=== PATIENT | male | born 1960 | race Caucasian/White ===

== ENCOUNTER 2019-07-22 18:08 | Observation (INO) ==
[2019-07-22 18:20] LABS: Basophils % 0.6 % (0.1-2.0); Eosinophils # 0.4 K/mm3 (0.0-0.4); Eosinophils % 6.3 % (0.1-12.0); Hematocrit 39.2 % (42.0-52.0); Hemoglobin 13.2 g/dL (14.1-18.0); Lymphocytes # 2.8 K/mm3 (0.7-4.5); Lymphocytes % 40.5 % (10-50); Mean Corpuscular HGB Conc 33.7 g/dL (31.8-35.4); Mean Corpuscular Volume 95.8 fl (80-94); Mean Platelet Volume 7.5 fl (7.4-10.4); Monocytes # 0.4 K/mm3 (0.1-1.0); Monocytes % 5.2 % (1.7-9.3); Neutrophils # 3.2 K/mm3 (1.8-7.8); Neutrophils % 47.5 % (37.0-80.0); Platelet Count 310 K/mm3 (142-424); White Blood Count 6.8 K/mm3 (4.8-10.8)
[2019-07-22 18:34] LABS: Anion Gap 13.8 mEq/L (5-15); Blood Urea Nitrogen 14 mg/dL (7-18); Calcium 8.8 mg/dL (8.5-10.1); Carbon Dioxide 25 mmol/L (21.0-32.0); Chloride 105 mmol/L (98-107); Glucose 93 mg/dL (74-106); Sodium 140 mmol/L (136-145)
--- NOTE | 2019-07-22 20:24 | Emergency Department Note ---
ED Disposition Clinical Impression: Tobacco use Chest pain Qualifiers: Chest pain type: precordial pain Qualified Code(s): R07.2 - Precordial pain Disposition: Admitted as Observation Condition on Discharge: Good Referrals: Provider,Referral, [Primary Care Provider] - - Critical Care Critical Care Time: No Attestation: On 07/22/19, the high probability of a clinically significant, sudden or life threatening deterioration of the following system(s) required my full and direct attention, intervention and personal management. The time I documented below is in addition to time spent performing reported procedures but includes the following listed in this critical care notation. Medical Decision Making - Medical Records Medical records reviewed: Yes: I reviewed the patient's medical records. - Audi Inquiry Pt receiving controlled substance: No Vital Signs: 07/22/19 18:08 Temperature 98.3 F Temperature Source Oral Pulse Rate [Right] 75 Respiratory Rate 18 Blood Pressure [Right Arm] 150/106 H Blood Pressure Mean [Right Arm] 120 02 Sat by Pulse Oximetry 95 - Lab Data Lab results reviewed: Yes: I reviewed the patient's lab results. Lab Results 07/22/19 18:09: WBC 6.8, RBC 4.10 L, Hgb 13.2 L, Hct 39.2 L, MCV 95.8 H, MCH 32.3 H, MCHC 33.7, RDW 13.0, Plt Count 310, MPV 7.5, Neut % (Auto) 47.5, Lymph % (Auto) 40.5, [place] % (Auto) 5.2, Eos % (Auto) 6.3, Baso % (Auto) 0.6, Neut # (Auto) 3.2, Lymph # (Auto) 2.8, [place] # (Auto) 0.4, Eos # (Auto) 0.4, Baso # (Auto) 0.0 07/22/19 18:09: Sodium 140, Potassium 3.8, Chloride 105, Carbon Dioxide 25, Anion Gap 13.8, BUN 14, Creatinine 1.09, Estimated Creat Clear 65, Estimated GFR 69, Est GFR ( Amer) 84, Glucose 93, Calcium 8.8, Troponin I < 0.02 07/22/19 18:09: B-Natriuretic Peptide 18 Result diagrams: 07/22/19 18:09 07/22/19 18:09 Orders (Tests/Meds): ED MEDICATIONS Discontinued Medications Generic Name Dose Route Start Last Admin Trade Name Abdirizak PRN Reason Stop Dose Admin Aspirin 324 mg 07/22/19 18:12 07/22/19 18:25 Aspirin 81mg Chewable Tablet PO 07/22/19 18:13 324 mg ONCE ONE Administration ORDERS Category Date Time Status XR chest 2V Stat Exams 07/22/19 18:12 Taken Troponin I Q3H Lab 07/22/19 21:15 Ordered Troponin I Q3H Lab 07/23/19 00:15 Ordered - ECG Data Tracing #1 Normal Sinus Rhythm: Yes Ischemic changes: non-specific ST-T wave changes Chest Pain HPI - General Chief Complaint: Chest Pain Stated Complaint: chest pain Time Seen by Provider: 07/22/19 20:17 Mode of Arrival: Ambulatory Source of Information: Patient, Relative, Medical Record Limitations: No Limitations Description of Symptoms (Recalled from ER Triage Doc. by RN): Pt c/o chest pain in the center of his chest that radiates to the left side of his arm. - History of Present Illness HPI narrative: pt with over the last 3 days - he has lt ant chest pain with rad to lt upper ext - hx of heart disease - last stents 10 yrs ago complaint: chest pain indicative of cardiac Onset (ago): hour(s) Activity at onset: during rest Severity: moderate Risk Factors for CAD: Hypertension, Family Hx of CAD, Smoking Treatments prior to or on arrival for Cardiac Chest Pain: none - JESSICA Score for Non-Stemi Age of Patient: 50-59 years old Heart Rate: 70-89 bpm Systolic Blood Pressure: 140-159 mmHg Serum Creatinine: 0.80-1.19 mg/dl CHF [place] Class: I-No CHF Other Risk Factors: None Non-Stemi Risk Score: 81 - Related Data Prior Cardiac Testing/Procedures: Cardiac Angiogram Home Medications Medication Instructions Recorded Confirmed Clopidogrel Bisulfate [Plavix 75mg 75 mg PO DAILY 07/22/19 07/22/19 Tab] Metoprolol Tartrate [Lopressor 25 mg PO BID 07/22/19 07/22/19 25mg tablet] Simvastatin 40 mg PO DAILY 07/22/19 07/22/19 Tamsulosin HCl [Flomax 0.4mg 0.4 mg PO HS 07/22/19 07/22/19 capsule] Allergies Allergy/AdvReac Type Severity Reaction Status Date / Time No Known Allergies Allergy Verified 07/22/19 20:30 [facility] History - Hepatitis A Screen Drug use history?: No High risk sexual behaviors?: No History of sexually transmitted infection?: No Currently employed?: No Childcare worker?: No Do you have indoor plumbing?: Yes Do you have electricity?: Yes Attestation statement:: This patient has been screened for Hepatitis A risk factors. I have reviewed the patient's past medical history: Yes - Social History Alcohol Intake: never Occupational Status: retired ROS Obtained: Yes All systems reviewed & no additional complaints - Constitutional Constitutional: Denies fever(s) - Eyes Eyes: Denies change in vision - ENT Ears, Nose, Mouth, and Throat: Denies sore throat - Cardiovascular Cardiovascular: Reports chest pain, Denies dyspnea - Respiratory Respiratory: No cough - Gastrointestinal Gastrointestingal: Denies: abdominal pain - Genitourinary Male Genitourinary: Denies hematuria - Integumentary/Breasts Skin/Breast: Denies rash - Neurologic Neurologic: Denies seizure-like activity Physical Exam - General General appearance: alert - Head Head exam: normocephalic - Eye Eye exam: Present: PERRL, EOMI - ENT ENT exam: Present: mucous membranes moist - Neck Neck exam: Present: trachea midline - Respiratory Respiratory exam: Present: normal lung sounds bilaterally. Absent: respiratory distress - Cardiovascular Cardiovascular exam: Present: regular rate, systolic murmur - Abdominal Exam Abdominal exam: Present: soft - Extremities Exam Extremities exam: Present: full ROM. Absent: joint swelling - Neurological Exam Neurological exam: Present: alert, oriented X3, CN II-XII intact - Psychiatric Psychiatric exam: Present: normal affect - Skin Skin exam: Absent: rash
--- NOTE | 2019-07-23 07:34 | Consult Report ---
History of Present Illness Consult date: 07/23/19 Requesting physician: Ari Forbes Consult reason: chest pain Chief complaint: chest pain Additional Medical History:: 1. Tobacco use, 0.5-1.0 ppd 2. History of coronary disease with prior coronary stenting in [place], [place], approximately 2011 A. Left heart catheterization, 04/2017, ANGIOGRAPHIC RESULTS: 1. The left main artery has an ostial 30-40% nonflow limiting stenosis 2. The left anterior descending artery has a stent in the ostial proximal segment which is widely patent with excellent proximal and distal transitioning area in the first diagonal artery originates in side this proximal LAD stent. The diagonal artery also has a stent which is widely patent with excellent JORDAN-3 flow. The remaining LAD has mild 20 and 30% nonflow limiting stenoses 3. The circumflex artery is a nondominant vessel and has an ostial 20-30% proximal 30% stenoses 4. The right coronary artery is a dominant vessel and has 30% proximal mid vessel 30-40% stenoses 5. The MARQUEZ ventriculogram reveals normal 65% 6. The left ventricular end-diastolic pressure 10 mmHg IMPRESSION: 1. Coronary artery disease as described above 2. No interval change in left main disease 3. Widely patent stents 4. Normal ejection fraction 5. Normal left ventricular end-diastolic pressure 6. Patient is likely experiencing endothelial dysfunction causing his angina PLAN: 1. Antianginal medications including nitrates and Ranexa 2. Absolute tobacco avoidance 3. LDL less than 55 4. Risk factor modification 3. Hypertension 4. Hyperlipidemia History of present illness: 58-year-old white male with history of coronary artery disease and prior coronary stenting presented to the emergency department for evaluation of chest pain. Symptoms are recurrent over the last couple of days and not particularly associated with activity. He denies any nausea, vomiting or diarrhea. Symptoms are not the same as his prior angina/symptoms associated with his DC. Initial EKG showed sinus rhythm with no acute ST segment changes. Initial troponin was normal patient was admitted for further evaluation and observation. Overnight troponins have returned normal x3. Chest x-ray shows no evidence of congestive heart failure and BNP is within normal limits. Preliminary echocardiogram shows normal left ventricular ejection fraction with no significant valvular heart disease. [facility] History Medical History: Reports:: Coronary Artery Disease, Hypertension, Myocardial Infarction Denies:: Cancer, Diabetes Mellitus Type 1, Diabetes Mellitus Type 2, MRSA *Have you ever received a pneumonia vaccine?: No *Have you received a flu vaccine this season?: Yes Other Medical History: Reports: Liver Disease Other Surgeries: Yes: Cardiac Catheterization (2 stents) Fractures: Yes (left foot, 2 toes & R hand middle finger) - *Social History Educational Level: Attended High School Smoking Status: Current every day smoker Tobacco Type: cigarettes # Packs/Day (cigarettes): 1 Alcohol Intake: former *Occupational Status:: retired, disabled Housing: house Household Members: spouse, family, children *Travel in the last 8 weeks: None Family Hx:: Cancer, Coronary Artery Disease, Hyperlipidemia, Hypertension Meds Home Medications Medication Instructions Recorded Confirmed Type Acetaminophen [Tylenol 500mg 500 mg PO Q8 PRN 07/22/19 07/22/19 History tablet] Aspirin [Adult Aspirin Regimen] 81 mg PO DAILY 07/22/19 07/22/19 History Butalb/Acetaminophen/Caffeine 1 each PO DAILY 07/22/19 07/22/19 History [Fioricet 50-300-40 mg Capsule] Clopidogrel Bisulfate [Clopidogrel 75 mg PO DAILY 07/22/19 07/22/19 History 75mg Tab] Clopidogrel Bisulfate [Plavix 75mg 75 mg PO DAILY 07/22/19 07/22/19 History Tab] Metoprolol Tartrate [Lopressor 25 mg PO BID 07/22/19 07/22/19 History 25mg tablet] Simvastatin 40 mg PO DAILY 07/22/19 07/22/19 History Tamsulosin HCl 0.4 mg PO DAILY 07/22/19 07/22/19 History diazePAM [Valium] 10 mg PO DAILY 07/22/19 07/22/19 History Allergies Allergy/AdvReac Type Severity Reaction Status Date / Time No Known Allergies Allergy Verified 07/22/19 20:30 Review of Systems - Review of Systems Review of systems:: pertinent systems reviewed and negative unless documented below - *Cardiovascular Reports chest pain, Reports shortness of breath with activity - *Respiratory Reports shortness of breath with activity, Denies cough - *Gastrointestinal Denies loose stools, Denies nausea, Denies vomiting - *Genitourinary Denies blood in urine - *Musculoskeletal Reports joint pain, Reports back pain - *Neurologic Denies seizure-like activity Exam Vital signs and Labs for Last 24 Hours: Temp Pulse Resp BP Pulse Ox 98.0 F 67 16 114/62 98 07/23/19 04:00 07/23/19 04:00 07/23/19 04:00 07/23/19 04:00 07/23/19 04:00 Laboratory Results - last 24 hr 07/22/19 18:09: WBC 6.8, RBC 4.10 L, Hgb 13.2 L, Hct 39.2 L, MCV 95.8 H, MCH 32.3 H, MCHC 33.7, RDW 13.0, Plt Count 310, MPV 7.5, Neut % (Auto) 47.5, Lymph % (Auto) 40.5, [place] % (Auto) 5.2, Eos % (Auto) 6.3, Baso % (Auto) 0.6, Neut # (Auto) 3.2, Lymph # (Auto) 2.8, [place] # (Auto) 0.4, Eos # (Auto) 0.4, Baso # (Auto) 0.0 07/22/19 18:09: Sodium 140, Potassium 3.8, Chloride 105, Carbon Dioxide 25, Anion Gap 13.8, BUN 14, Creatinine 1.09, Estimated Creat Clear 65, Estimated GFR 69, Est GFR ( Amer) 84, Glucose 93, Calcium 8.8, Troponin I < 0.02 07/22/19 18:09: B-Natriuretic Peptide 18 07/22/19 20:58: Troponin I < 0.02 07/23/19 00:05: Troponin I < 0.02 I & O for Last 24 hours: Intake & Output 07/20/19 07/21/19 07/22/19 07/23/19 11:59 11:59 11:59 11:59 Intake Total 210 / 210 Balance 210 / 210 Weight 133 lb - *Routine HEENT Exam Head: Present: normocephalic Eye: Present: EOMI, PERRL ENT: Present: mucous membranes moist - *Routine Neck Exam Present: supple. Absent: JVD, carotid bruit - *Routine Respiratory Exam Present: CTA bilaterally. Absent: accessory muscle use, rales, rhonchi, wheezes - *Routine Cardiovascular Exam Present: RRR. Absent: murmur, gallop, rubs - *Routine Abdominal Exam Present: soft. Absent: tenderness, distended, guarding - *Routine Extremities Exam Absent: edema, calf tenderness - *Routine Neurological Exam Present: alert, oriented X3, moving all extremities Assessment and Plan (1) Chest pain Current visit: Yes Status: Acute Qualifiers: Chest pain type: precordial pain Qualified Code(s): R07.2 - Precordial pain Category: Medical Code(s): R07.9 - Chest pain, unspecified (2) Coronary artery disease Current visit: Yes Status: Acute Category: Medical Code(s): I25.10 - Atherosclerotic heart disease of [place] coronary artery without angina pectoris (3) History of coronary artery stent placement Current visit: Yes Status: Acute Category: Surgical Code(s): Z95.5 - Presence of coronary angioplasty implant and graft (4) Hypertension Current visit: Yes Status: Acute Category: Medical Code(s): I10 - Essential (primary) hypertension (5) Hyperlipidemia Current visit: Yes Status: Acute Category: Medical Code(s): E78.5 - Hyperlipidemia, unspecified (6) Tobacco use Current visit: Yes Status: Acute Category: Medical Code(s): Z72.0 - Tobacco use - Assessment and plan all Dx Assessment and Plan for all problems:: 1. Atypical chest pain with normal troponins x3 and EKG with no acute ST segment changes. Preliminary echocardiogram shows normal ejection fraction. Recommend proceeding with either exercise or Lexiscan Myoview stress testing today. Most likely patient has either endothelial dysfunction from tobacco use or GI etiology for his chest discomfort. Continue metoprolol and Plavix. Recommend adding isosorbide mononitrate 30 mg daily if stress test is normal. If stress test is abnormal then patient will need repeat cardiac catheterization. 2. Smoking cessation recommended.
--- NOTE | 2019-07-23 07:50 | Pharmacy Consult Notes ---
[facility] Pharmacy VTE Monitoring - Patient Demographics Admission date: 07/22/19 Report Date: 07/23/19 Time: 07:50 Allergies/Adverse Reactions: Patient Allergies No Known Allergies Allergy (Verified 07/22/19 20:30) Height: 1.73 m Weight: 60.328 kg Patient Problems: Current Active Problems Chest pain (Acute) Tobacco use (Acute) Coronary artery disease (Acute) History of coronary artery stent placement (Acute) Hypertension (Acute) Hyperlipidemia (Acute) - VTE Risk Labs: VTE Related Lab Results Hgb 13.2 g/dL (14.1-18.0) L 07/22/19 18:09 Hct 39.2 % (42.0-52.0) L 07/22/19 18:09 Plt Count 310 K/mm3 (142-424) 07/22/19 18:09 BUN 14 mg/dL (7-18) 07/22/19 18:09 Creatinine 1.09 mg/dL (0.70-1.30) 07/22/19 18:09 Estimated Creat Clear 65 mL/min (50-200) 07/22/19 18:09 VTE Score: 2 VTE Risk Level: Low Risk - Prophylaxis VTE Prophylaxis Ordered?: Yes Types of VTE Prophylaxis: TEDS Knee High Location of Applied Device: Bilateral Lower Extremeties - VTE Diagnosis Confirmed Treatment or plan recommended: Continue Current Treatment
[2019-07-23 07:52] LABS: Anion Gap 11.8 mEq/L (5-15); Calcium 8.7 mg/dL (8.5-10.1); Chol/HDL Ratio 3.9 (1-3.5)
[2019-07-23 08:03] LABS: Basophils % 0.4 % (0.1-2.0); Eosinophils # 0.4 K/mm3 (0.0-0.4); Eosinophils % 5.5 % (0.1-12.0); Hematocrit 39.6 % (42.0-52.0); Hemoglobin 13.1 g/dL (14.1-18.0); Lymphocytes # 2.1 K/mm3 (0.7-4.5); Lymphocytes % 27.6 % (10-50); Mean Corpuscular HGB Conc 33.1 g/dL (31.8-35.4); Mean Platelet Volume 8.1 fl (7.4-10.4); Monocytes # 0.4 K/mm3 (0.1-1.0); Monocytes % 5.3 % (1.7-9.3); Neutrophils # 4.7 K/mm3 (1.8-7.8); Neutrophils % 61.2 % (37.0-80.0); Platelet Count 296 K/mm3 (142-424); Red Blood Count 4.08 M/mm3 (4.60-6.20); Red Cell Distribution Width 13.1 % (11.5-17.5); White Blood Count 7.7 K/mm3 (4.8-10.8)
--- NOTE | 2019-07-23 08:17 | History & Physical Report ---
*Admission Date: 07/22/19 <Re Gore 07/23/19 08:21> *Chief complaint: chest pain <Re Gore 07/23/19 08:21> *History of present illness: Mr. Lozano is a 58-year-old white male with a history of coronary artery disease and prior stenting who presented to the emergency room after having 3 days of intermittent chest pain. The patient states the pain is not associated with activity. It was located in the left side of his chest and at one point did radiate down his left arm. The pain would last for around 10 minutes and subside on its own. He had associated shortness of breath as well but denied any nausea or vomiting. His initial EKG showed sinus rhythm with no ST segment changes and initial troponin was normal. He was admitted and his overnight troponins have all returned normal. His chest x-ray shows no evidence of CHF and his BNP is within normal limits. His preliminary echo shows normal left ventricular ejection fraction with no valvular heart disease. Cardiology has been consulted. <Re Gore 07/23/19 08:21> [facility] History I have reviewed the patient's past medical history: Yes <Re Gore 07/23/19 08:21> Medical History: Reports:: Coronary Artery Disease, Hyperlipidemia, Hypertension, Myocardial Infarction Denies:: Cancer, Diabetes Mellitus Type 1, Diabetes Mellitus Type 2, MRSA <Re Gore 07/23/19 08:21> *Have you ever received a pneumonia vaccine?: No <Re Gore 07/23/19 08:21> *Have you received a flu vaccine this season?: Yes <Re Gore 07/23/19 08:21> Other Medical History: Reports: Liver Disease <Re Gore 07/23/19 08:21> Other Surgeries: Yes: Cardiac Catheterization (2 stents) <Re Gore 07/23/19 08:21> Fractures: Yes (left foot, 2 toes & R hand middle finger) <Re Gore 07/23/19 08:21> - *Social History Educational Level: Attended High School <Re Gore 07/23/19 08:21> Smoking Status: Current every day smoker <Re Gore 07/23/19 08:21> Tobacco Type: cigarettes <Re Gore 07/23/19 08:21> # Packs/Day (cigarettes): 1 <Re Gore 07/23/19 08:21> Alcohol Intake: former <Re Gore 07/23/19 08:21> *Occupational Status:: retired, disabled <Re Gore 07/23/19 08:21> Housing: house <Re Gore 07/23/19 08:21> Household Members: spouse, family, children <Re Gore 07/23/19 08:21> *Travel in the last 8 weeks: None <Re Gore 07/23/19 08:21> Family Hx:: Cancer, Coronary Artery Disease, Hyperlipidemia, Hypertension <Re Gore 07/23/19 08:21> Review of Systems - Constitutional Denies chills, Denies fever(s), Denies weakness <Juancho Gorea 07/23/19 08:21> - Eyes Denies blurry vision, Denies double vision <Juancho Gorea 07/23/19 08:21> - ENT Denies nasal congestion, Denies sore throat <Juancho Gorea 07/23/19 08:21> - *Cardiovascular Reports chest pain, Reports shortness of breath, Denies leg swelling <Juancho Gorea 07/23/19 08:21> - *Respiratory Reports shortness of breath, Denies chest congestion, Denies cough <Juancho Gorea 07/23/19 08:21> - *Gastrointestinal Reports abdominal pain (epigastric), Denies loose stools, Denies nausea, Denies vomiting <Juancho Gorea 07/23/19 08:21> - *Genitourinary Denies difficulty urinating, Denies painful urination <Juancho Gorea 07/23/19 08:21> - *Musculoskeletal Denies joint pain, Denies muscle weakness <Juancho Gorea 07/23/19 08:21> - *Neurologic Reports headache(s), Denies seizure-like activity, Denies dizziness, Denies weakness <Re Gore 07/23/19 08:21> Meds Home Medications Medication Instructions Recorded Confirmed Type Acetaminophen [Tylenol 500mg 500 mg PO Q8HP PRN 07/22/19 07/23/19 History tablet] Aspirin [Adult Aspirin Regimen] 81 mg PO DAILY 07/22/19 07/22/19 History Butalb/Acetaminophen/Caffeine 1 each PO DAILY 07/22/19 07/22/19 History [Fioricet 50-300-40 mg Capsule] Clopidogrel Bisulfate [Plavix 75mg 75 mg PO DAILY 07/22/19 07/22/19 History Tab] Metoprolol Tartrate [Lopressor 25 mg PO BID 07/22/19 07/22/19 History 25mg tablet] Simvastatin 40 mg PO HS 07/22/19 07/23/19 History Tamsulosin HCl 0.4 mg PO DAILY 07/22/19 07/22/19 History diazePAM [Valium] 10 mg PO BID 07/22/19 07/23/19 History <Ari Forbes - 07/23/19 09:04> Allergies Allergy/AdvReac Type Severity Reaction Status Date / Time No Known Allergies Allergy Verified 07/22/19 20:30 <Ari Forbes - 07/23/19 09:04> Exam Vital signs and Labs for Last 24 Hours: Temp Pulse Resp BP Pulse Ox 98.3 F 70 18 109/66 L 98 07/23/19 07:56 07/23/19 07:56 07/23/19 07:56 07/23/19 07:56 07/23/19 07:56 Laboratory Results - last 24 hr 07/22/19 18:09: WBC 6.8, RBC 4.10 L, Hgb 13.2 L, Hct 39.2 L, MCV 95.8 H, MCH 32.3 H, MCHC 33.7, RDW 13.0, Plt Count 310, MPV 7.5, Neut % (Auto) 47.5, Lymph % (Auto) 40.5, [place] % (Auto) 5.2, Eos % (Auto) 6.3, Baso % (Auto) 0.6, Neut # (Auto) 3.2, Lymph # (Auto) 2.8, [place] # (Auto) 0.4, Eos # (Auto) 0.4, Baso # (Auto) 0.0 07/22/19 18:09: Sodium 140, Potassium 3.8, Chloride 105, Carbon Dioxide 25, Anion Gap 13.8, BUN 14, Creatinine 1.09, Estimated Creat Clear 65, Estimated GFR 69, Est GFR ( Amer) 84, Glucose 93, Calcium 8.8, Troponin I < 0.02 07/22/19 18:09: B-Natriuretic Peptide 18 07/22/19 20:58: Troponin I < 0.02 07/23/19 00:05: Troponin I < 0.02 07/23/19 07:04: WBC 7.7, RBC 4.08 L, Hgb 13.1 L, Hct 39.6 L, MCV 97.0 H, MCH 32.1 H, MCHC 33.1, RDW 13.1, Plt Count 296, MPV 8.1, Neut % (Auto) 61.2, Lymph % (Auto) 27.6, [place] % (Auto) 5.3, Eos % (Auto) 5.5, Baso % (Auto) 0.4, Neut # (Auto) 4.7, Lymph # (Auto) 2.1, [place] # (Auto) 0.4, Eos # (Auto) 0.4, Baso # (Auto) 0.0 07/23/19 07:04: Sodium 141, Potassium 3.8, Chloride 108 H, Carbon Dioxide 25, Anion Gap 11.8, BUN 12, Creatinine 0.94, Estimated Creat Clear 72, Estimated GFR 82, Est GFR ( Amer) 99, Glucose 92, Calcium 8.7, Magnesium 1.9, Triglycerides 74, Cholesterol 146, LDL Cholesterol 94, VLDL Cholesterol 15, HDL Cholesterol 37, Cholesterol/HDL Ratio 3.9 H <Ari Forbes - 07/23/19 09:04> Temp Pulse Resp BP Pulse Ox 98.3 F 70 18 109/66 L 98 07/23/19 07:56 07/23/19 07:56 07/23/19 07:56 07/23/19 07:56 07/23/19 07:56 Laboratory Results - last 24 hr 07/22/19 18:09: WBC 6.8, RBC 4.10 L, Hgb 13.2 L, Hct 39.2 L, MCV 95.8 H, MCH 32.3 H, MCHC 33.7, RDW 13.0, Plt Count 310, MPV 7.5, Neut % (Auto) 47.5, Lymph % (Auto) 40.5, [place] % (Auto) 5.2, Eos % (Auto) 6.3, Baso % (Auto) 0.6, Neut # (Auto) 3.2, Lymph # (Auto) 2.8, [place] # (Auto) 0.4, Eos # (Auto) 0.4, Baso # (Auto) 0.0 07/22/19 18:09: Sodium 140, Potassium 3.8, Chloride 105, Carbon Dioxide 25, Anion Gap 13.8, BUN 14, Creatinine 1.09, Estimated Creat Clear 65, Estimated GFR 69, Est GFR ( Amer) 84, Glucose 93, Calcium 8.8, Troponin I < 0.02 07/22/19 18:09: B-Natriuretic Peptide 18 07/22/19 20:58: Troponin I < 0.02 07/23/19 00:05: Troponin I < 0.02 07/23/19 07:04: WBC 7.7, RBC 4.08 L, Hgb 13.1 L, Hct 39.6 L, MCV 97.0 H, MCH 32.1 H, MCHC 33.1, RDW 13.1, Plt Count 296, MPV 8.1, Neut % (Auto) 61.2, Lymph % (Auto) 27.6, [place] % (Auto) 5.3, Eos % (Auto) 5.5, Baso % (Auto) 0.4, Neut # (Auto) 4.7, Lymph # (Auto) 2.1, [place] # (Auto) 0.4, Eos # (Auto) 0.4, Baso # (Auto) 0.0 07/23/19 07:04: Sodium 141, Potassium 3.8, Chloride 108 H, Carbon Dioxide 25, Anion Gap 11.8, BUN 12, Creatinine 0.94, Estimated Creat Clear 72, Estimated GFR 82, Est GFR ( Amer) 99, Glucose 92, Calcium 8.7, Magnesium 1.9, Triglycerides 74, Cholesterol 146, LDL Cholesterol 94, VLDL Cholesterol 15, HDL Cholesterol 37, Cholesterol/HDL Ratio 3.9 H <Re Gore - 07/23/19 08:21> I & O for Last 24 hours: Intake & Output 01/01/0107/21/19 07/22/19 07/23/19 23:59 23:59 23:59 23:59 Intake Total 210 / 210 Balance 210 / 210 Weight 131 lb 1 oz 133 lb <Ari Forbes - 07/23/19 09:04> Intake & Output 07/20/19 07/21/19 07/22/19 07/23/19 11:59 11:59 11:59 11:59 Intake Total 210 / 210 Balance 210 / 210 Weight 133 lb <Re Gore 07/23/19 08:21> - Constitutional no acute distress <Re Gore 07/23/19 08:21> - *Routine HEENT Exam Head: Present: normocephalic <BaoRe 07/23/19 08:21> Eye: Present: EOMI, PERRL <Re Gore 07/23/19 08:21> ENT: Present: mucous membranes dry <Re Gore 07/23/19 08:21> - *Routine Neck Exam Present: supple. Absent: lymphadenopathy <Re Gore 07/23/19 08:21> - *Routine Respiratory Exam Present: CTA bilaterally <Re Gore 07/23/19 08:21> - *Routine Cardiovascular Exam Present: RRR <Re Gore 07/23/19 08:21> - *Routine Abdominal Exam Present: soft, normoactive bowel sounds, tenderness (epigastric area) <Re Gore 07/23/19 08:21> - *Routine Extremities Exam Absent: cyanosis, clubbing, edema <BaoRe 07/23/19 08:21> - *Routine Skin Exam Present: warm. Absent: rash <Re Gore 07/23/19 08:21> - *Routine Neurological Exam Present: alert, oriented X3 <FredyjesusRe 07/23/19 08:21> H&P: Result - Impressions CXR - nothing acute <Re Gore 07/23/19 08:21> Assessment and Plan (1) Chest pain Current visit: Yes Status: Acute Qualifiers: Chest pain type: precordial pain Qualified Code(s): R07.2 - Precordial pain Category: Medical Code(s): R07.9 - Chest pain, unspecified (2) Coronary artery disease Current visit: Yes Status: Acute Category: Medical Code(s): I25.10 - Atherosclerotic heart disease of [place] coronary artery without angina pectoris (3) History of coronary artery stent placement Current visit: Yes Status: Acute Category: Surgical Code(s): Z95.5 - Presence of coronary angioplasty implant and graft (4) Hypertension Current visit: Yes Status: Acute Category: Medical Code(s): I10 - Essential (primary) hypertension (5) Hyperlipidemia Current visit: Yes Status: Acute Category: Medical Code(s): E78.5 - Hyperlipidemia, unspecified (6) Tobacco use Current visit: Yes Status: Acute Category: Medical Code(s): Z72.0 - Tobacco use <Ari Forbes - 07/23/19 09:04> (1) Chest pain Current visit: Yes Status: Acute Qualifiers: Chest pain type: precordial pain Qualified Code(s): R07.2 - Precordial pain Category: Medical Code(s): R07.9 - Chest pain, unspecified (2) Coronary artery disease Current visit: Yes Status: Acute Category: Medical Code(s): I25.10 - Atherosclerotic heart disease of [place] coronary artery without angina pectoris (3) History of coronary artery stent placement Current visit: Yes Status: Acute Category: Surgical Code(s): Z95.5 - Presence of coronary angioplasty implant and graft (4) Hypertension Current visit: Yes Status: Acute Category: Medical Code(s): I10 - Essential (primary) hypertension (5) Hyperlipidemia Current visit: Yes Status: Acute Category: Medical Code(s): E78.5 - Hyperlipidemia, unspecified (6) Tobacco use Current visit: Yes Status: Acute Category: Medical Code(s): Z72.0 - Tobacco use <Re Gore - 07/23/19 08:14> - Assessment and plan all Dx Assessment and Plan for all problems:: Saw patient, agree with above note. Patient was admitted overnight to Dr. Peoples who requested I see patient in his absence. Patient sees a Dr. Shi at [facility] for his primary care. Await stress test results and cardiology recommendations. <Ari Forbes - 07/23/19 09:04> Cardiology has seen the patient and recommend proceeding with either exercise or Lexiscan Myoview stress testing today. They recommend to continue metoprolol and Plavix and add isosorbide mononitrate 30 mg daily if stress test is normal. If stress test is abnormal, then patient will need repeat cardiac catheterization. <Re Gore - 07/23/19 08:21>
--- NOTE | 2019-07-23 12:56 | Electrocardiograph Report ---
APPROVED REPORT Exam: Resting ECG HR:64 bpm ECG Measurements Heart Rate 64 AXES MA 172 P 65 QRSd 82 QRS 68 QT 398 T63 QTc 410 <Conclusion> Normal sinus rhythm Normal ECG Electronically signed by : Anthony Jacobo, 07/23/2019 12:56:28
--- NOTE | 2019-07-23 15:19 | Cardiology Report ---
APPROVED REPORT Exam: Pharmacologic Technologist: Lidia Ponce, Ht: 5 ft 6 in Wt: 138 lbs BSA: 1.71 m2 HR: 66 bpm BP: 124/72 mmHg Rhythm: SINUS KEVIN Medical History Medical History: HTN, Hyperlipidemia Medications: Asa,,,,, TAMSALOSIN,,,,, Plavix,,,,, Valium,,,,, FiORCET,,,,, Simvasatin,,,,, Metoprol,,,,, Allergies: No known drug allergies Cardiac Risk Factors: HTN, Hyperlipidemia, FHX of CAD, Smoking Stress Test Details Test: LEXISCAN HR Resting HR: 59 bpmMax Heart Rate (APMHR): 161 bpm Max HR Achieved: 92 bpmTarget HR (85% APMHR): 136 bpm % of APMHR: 57 Recovery HR: 81 bpm BP Resting BP: 124.0/72.0 mmHg Max BP: 140.0/64.0 mmHg Recovery BP: 114.0/69.0 mmHg ECG Resting ECG: SINUS KEVIN Clinical Exercise duration: 04:00 min Highest Stage Achieved: Stress ECG Conclusion LEXISCAN PORTION COM PT C/O sob @ PEAK INFUSION WHICH RESOLVED IN RECOVERY. NO CP @ PEAK INFUSION. NO ECTOPY NOTED. LESS THAN 1.5MM OF ST DEPRESSION. IMAGES TO FOLLOW. Electronically signed by : Pradeep Naik, 07/23/2019 15:19:06
--- NOTE | 2019-07-23 17:11 | Progress Note ---
Internal Medicine - PN: Subj *Date: 07/23/19 *Time: 17:09 Interval history: Patient has done well today. Stress test is normal, chest pain has resolved. Patient is anxious to go home. Exam Vital signs and Labs for Last 24 Hours: Temp Pulse Resp BP Pulse Ox 98.2 F 60 19 111/67 96 07/23/19 15:34 07/23/19 16:00 07/23/19 15:34 07/23/19 15:34 07/23/19 15:34 Laboratory Results - last 24 hr 07/22/19 18:09: WBC 6.8, RBC 4.10 L, Hgb 13.2 L, Hct 39.2 L, MCV 95.8 H, MCH 32.3 H, MCHC 33.7, RDW 13.0, Plt Count 310, MPV 7.5, Neut % (Auto) 47.5, Lymph % (Auto) 40.5, [place] % (Auto) 5.2, Eos % (Auto) 6.3, Baso % (Auto) 0.6, Neut # (Auto) 3.2, Lymph # (Auto) 2.8, [place] # (Auto) 0.4, Eos # (Auto) 0.4, Baso # (Auto) 0.0 07/22/19 18:09: Sodium 140, Potassium 3.8, Chloride 105, Carbon Dioxide 25, Anion Gap 13.8, BUN 14, Creatinine 1.09, Estimated Creat Clear 65, Estimated GFR 69, Est GFR ( Amer) 84, Glucose 93, Calcium 8.8, Troponin I < 0.02 07/22/19 18:09: B-Natriuretic Peptide 18 07/22/19 20:58: Troponin I < 0.02 07/23/19 00:05: Troponin I < 0.02 07/23/19 07:04: WBC 7.7, RBC 4.08 L, Hgb 13.1 L, Hct 39.6 L, MCV 97.0 H, MCH 32.1 H, MCHC 33.1, RDW 13.1, Plt Count 296, MPV 8.1, Neut % (Auto) 61.2, Lymph % (Auto) 27.6, [place] % (Auto) 5.3, Eos % (Auto) 5.5, Baso % (Auto) 0.4, Neut # (Auto) 4.7, Lymph # (Auto) 2.1, [place] # (Auto) 0.4, Eos # (Auto) 0.4, Baso # (Auto) 0.0 07/23/19 07:04: Sodium 141, Potassium 3.8, Chloride 108 H, Carbon Dioxide 25, Anion Gap 11.8, BUN 12, Creatinine 0.94, Estimated Creat Clear 72, Estimated GFR 82, Est GFR ( Amer) 99, Glucose 92, Calcium 8.7, Magnesium 1.9, Triglycerides 74, Cholesterol 146, LDL Cholesterol 94, VLDL Cholesterol 15, HDL Cholesterol 37, Cholesterol/HDL Ratio 3.9 H I & O for Last 24 hours: Intake & Output 07/20/19 07/21/19 07/22/19 07/23/19 23:59 23:59 23:59 23:59 Intake Total 449 / 449 Balance 449 / 449 Weight 131 lb 1 oz 133 lb - Constitutional no acute distress - *Routine HEENT Exam Head: Present: normocephalic Eye: Present: EOMI, PERRL ENT: Present: mucous membranes moist - *Routine Neck Exam Present: supple. Absent: lymphadenopathy - *Routine Respiratory Exam Present: CTA bilaterally - *Routine Cardiovascular Exam Present: RRR - *Routine Abdominal Exam Present: soft, normoactive bowel sounds. Absent: tenderness - *Routine Extremities Exam Absent: cyanosis, clubbing, edema - *Routine Skin Exam Present: warm. Absent: rash - *Routine Neurological Exam Present: alert, oriented X3 Assessment and Plan (1) Chest pain Current visit: Yes Status: Acute Qualifiers: Chest pain type: precordial pain Qualified Code(s): R07.2 - Precordial pain Category: Medical Code(s): R07.9 - Chest pain, unspecified (2) Coronary artery disease Current visit: Yes Status: Acute Category: Medical Code(s): I25.10 - Atherosclerotic heart disease of [place] coronary artery without angina pectoris (3) History of coronary artery stent placement Current visit: Yes Status: Acute Category: Surgical Code(s): Z95.5 - Presence of coronary angioplasty implant and graft (4) Hypertension Current visit: Yes Status: Acute Category: Medical Code(s): I10 - Essential (primary) hypertension (5) Hyperlipidemia Current visit: Yes Status: Acute Category: Medical Code(s): E78.5 - Hyperlipidemia, unspecified (6) Tobacco use Current visit: Yes Status: Acute Category: Medical Code(s): Z72.0 - Tobacco use - Assessment and plan all Dx Assessment and Plan for all problems:: OK for discharge home with cardiology f/u in 2 weeks.
--- NOTE | 2019-07-24 13:28 | Cardiology Report ---
APPROVED REPORT EXAM: Comprehensive 2D, Doppler, and color-flow Echocardiogram Metal Drilling Machine Operator: Casi Laura CRT Ht: 5 ft 8 in Wt: 138lbs BSA: 1.75 BP: 150/106 mmHg Indications: cp, smoker, sob, hld, stents 2010, htn 2D Dimensions LVOT 2.04 cm (M/F) 1.5-2.5 M-Mode Dimensions RVDd 2.63 cm (0.9-2.6)LVDd 4.05 cm (3.5-5.7) LVDs 2.57 cm (3.5-5.7)IVSd 1.50 cm (0.6-1.1) PWd 1.30 cm (0.6-1.1)EF (Teich) 66.90% FS 36.50% EDV (Teich) 72.10 mL ESV (Teich) 23.90 mL LV Diastology E/A Ratio 1.21 Mitral Valve MV A Velocity 67.00 (40-130 cm/s) Left Ventricle Left atrium is mildly enlarged, left ventricle is normal size, mild concentric left ventricular hypertrophy, visually estimated ejection fraction 55% with no regional wall motion abnormality. Grade 1 diastolic dysfunction seen without tissue Doppler evidence of raise left atrial pressure. Right Ventricle Right atrium and right ventricle mildly enlarged with normal contractility. Aortic Valve Aortic valve is thickened and calcified leaflet continue to display good mobility, there is no aortic stenosis, there is mild aortic insufficiency. Mitral Valve Mitral valve is grossly normal, there is mild mitral regurgitation. Tricuspid Valve Tricuspid valve is grossly normal, there is mild tricuspid regurgitation, tricuspid regurgitation jet velocity is inadequate for calculation of the right ventricular systolic pressure. Pulmonic Valve Pulmonic valve is poorly visualized. Great Vessels Aortic root is normal size. Pericardium No significant pericardial effusion noted. Conclusion 1. Mild biatrial enlargement, normal left ventricular size, mild concentric left ventricular hypertrophy, visually estimated ejection fraction 55% with no regional wall motion abnormality, grade 1 diastolic dysfunction seen without tissue Doppler evidence of raise left atrial pressure. 2. Mildly enlarged right ventricle with normal contractility. 3. Mild aortic, mild mitral and tricuspid regurgitation. 4. No significant pericardial effusion noted. Electronically signed by : Pradeep Naik, 07/24/2019 13:27:56
--- NOTE | 2019-07-24 21:42 | Discharge Summary ---
General - General Admission date:: 07/22/19 Discharge date: 07/23/19 HPI HPI: Mr. Lozano is a 58-year-old white male with a history of coronary artery disease and prior stenting who presented to the emergency room after having 3 days of intermittent chest pain. The patient states the pain is not associated with activity. It was located in the left side of his chest and at one point did radiate down his left arm. The pain would last for around 10 minutes and subside on its own. He had associated shortness of breath as well but denied any nausea or vomiting. His initial EKG showed sinus rhythm with no ST segment changes and initial troponin was normal. He was admitted and his overnight troponins have all returned normal. His chest x-ray shows no evidence of CHF and his BNP is within normal limits. His preliminary echo shows normal left ventricular ejection fraction with no valvular heart disease. Cardiology has been consulted. Hospital Course Hospital Course: The patient was seen by cardiology who recommended proceeding with an exercise stress test. They wanted to continue his metoprolol and Plavix and add isosorbide mononitrate 30 mg daily. The patient'd stress test was normal and his chest pain resolved. He did well throughout the day and was anxious to go home. He was stable to be discharged home and will follow-up with cardiology in 2 weeks. Objective Vital signs: Temp Pulse Resp BP Pulse Ox 98.2 F 60 19 111/67 96 07/23/19 15:34 07/23/19 16:00 07/23/19 15:34 07/23/19 15:34 07/23/19 15:34 Narrative: - Constitutional no acute distress - *Routine HEENT Exam Head: Present: normocephalic Eye: Present: EOMI, PERRL ENT: Present: mucous membranes dry - *Routine Neck Exam Present: supple. Absent: lymphadenopathy - *Routine Respiratory Exam Present: CTA bilaterally - *Routine Cardiovascular Exam Present: RRR - *Routine Abdominal Exam Present: soft, normoactive bowel sounds, tenderness (epigastric area) - *Routine Extremities Exam Absent: cyanosis, clubbing, edema - *Routine Skin Exam Present: warm. Absent: rash - *Routine Neurological Exam Present: alert, oriented X3 DS: Diagnosis - Discharge Diagnosis (1) Chest pain Status: Acute (2) Coronary artery disease Status: Acute (3) History of coronary artery stent placement Status: Acute (4) Hypertension Status: Acute (5) Hyperlipidemia Status: Acute (6) Tobacco use Status: Acute Discharge Plan - Patient Discharge Instructions ACTIVITY: Continue current activity DIET: continue same diet Patient Instructions: DI for Chest Pain - Follow up Plan Follow up with: Narayan Magallanes MD [Staff Physician] - 2 weeks Disposition: Home, Self-Senior Care Medications: Home Medications Medication Instructions Recorded Confirmed Type Acetaminophen [Tylenol 500mg 500 mg PO Q8HP PRN 07/22/19 07/23/19 History tablet] Aspirin [Adult Aspirin Regimen] 81 mg PO DAILY 07/22/19 07/22/19 History Butalb/Acetaminophen/Caffeine 1 each PO DAILY 07/22/19 07/22/19 History [Fioricet 50-300-40 mg Capsule] Clopidogrel Bisulfate [Plavix 75mg 75 mg PO DAILY 07/22/19 07/22/19 History Tab] Metoprolol Tartrate [Lopressor 25 mg PO BID 07/22/19 07/22/19 History 25mg tablet] Simvastatin 40 mg PO HS 07/22/19 07/23/19 History Tamsulosin HCl 0.4 mg PO DAILY 07/22/19 07/22/19 History diazePAM [Valium] 10 mg PO BID 07/22/19 07/23/19 History Prescriptions/Medication Reconciliation: Continued Clopidogrel Bisulfate [Plavix 75mg Tab] 75 mg PO DAILY Simvastatin 40 mg PO HS Butalb/Acetaminophen/Caffeine [Fioricet 50-300-40 mg Capsule] 1 each PO DAILY Acetaminophen [Tylenol 500mg tablet] 500 mg PO Q8HP PRN PRN Reason: pain Aspirin [Adult Aspirin Regimen] 81 mg PO DAILY Metoprolol Tartrate [Lopressor 25mg tablet] 25 mg PO BID Tamsulosin HCl 0.4 mg PO DAILY diazePAM [Valium] 10 mg PO BID - Problem Reconciliation Problems Reviewed?: Yes
== END 2019-07-23 17:00 | disposition home or self-care (01) ==
LOC: 2ND 18:08 → ER 18:08 → 2ND 21:56
PROVIDERS: ADMIT Family Medicine; ATTEND Family Medicine
DX: Z79.82 Long term (current) use of aspirin; Z82.49 Family history of ischemic heart disease and other diseases of the circulatory system; Z72.0 Tobacco use; R07.2 Precordial pain; Z79.1 Long term (current) use of non-steroidal anti-inflammatories (NSAID); Z79.899 Other long term (current) drug therapy; E78.5 Hyperlipidemia, unspecified; Z79.02 Long term (current) use of antithrombotics/antiplatelets; I25.2 Old myocardial infarction; Z95.5 Presence of coronary angioplasty implant and graft; I25.10 Atherosclerotic heart disease of native coronary artery without angina pectoris; I10 Essential (primary) hypertension
CPT/HCPCS: 36415; 71020; 71046; 78452; 80048; 80061; 83735; 83880; 84484; 85025; 93005; 93017; 93306; 99284; A9502; G0378

== ENCOUNTER 2022-07-16 13:57 | Emergency (ER) | payer MEDICARE, SELFPAY ==
[2022-07-16 14:50] VITALS: BP 134/87; PULSE 83; RESP 20; TEMP 36.6; O2SAT 100; BMI 20.3
--- NOTE | 2022-07-16 15:24 | EXP.UTC ---
Discharge Plan Disposition Patient Disposition: Home, Self-Care Condition: Good Prescriptions Prescriptions: New methocarbamol 500 mg tablet 500 mg PO TID PRN (Reason: muscle spasm) Qty: 12 0RF No Action clopidogrel 75 MG tablet 75 mg PO DAILY simvastatin 40 MG tablet 40 mg PO HS tamsulosin 0.4 MG capsule 0.4 mg PO DAILY diazepam 10 MG tablet 10 mg PO BID metoprolol tartrate 25 MG tablet 25 mg PO BID eulzfxfpui-meiyrfocjipta-nhrg 1 EACH capsule 1 each PO DAILY acetaminophen 500 MG tablet 500 mg PO Q8HP PRN (Reason: pain) aspirin 81 MG tablet,delayed release (DR/EC) 81 mg PO DAILY Referrals Follow up/Referrals: Yoli Nicole APRN [Primary Care Provider] - See instructions Activity Restrictions/Add. Instructions Additional Instructions/Restrictions: *Ibuprofen brielle 6 hours with meal as needed for pain/inflammation if you can take it *Remember you had a Toradol shot in the clinic today, which is similar to Motrin so do not take any for the next 8 hours *Not additional anti-inflammatory like motrin, aleve, advil with the above amount of ibuprofen. You can still take Tylenol every 4 hours as needed if you need something else for pain *Ice 20 minutes every 2 hours for the first 48 hours after the initial injury followed by moist heat every 20 minutes 3-4 times a day to affected area *Muscle relaxer every 8 hours as needed for muscle spasms but remember, it WILL cause drowsiness You cannot take it and drive, operate machinery or care for small children. *Keep this area active, no movement leads to more stiffness, However take it easy and avoid heavy lifting pushing or pulling *Follow up with you family doctor if no improvement for further treatment Over the counter Muscle rubs may help with pain and tightness in your muscles Clinical Impressions Clinical Impression: Muscle spasm Instructions Patient Instructions: Methocarbamol, DI for Muscle Spasm Discharge ED Provider: Gunjan Duque [facility] [place] HPI General Stated complaint: Neck pain, RT shoulder pain, no accident Mode of Arrival: Ambulatory Source of Information: Patient Limitations: No Limitations Time Seen by Provider: 07/16/22 15:24 Description of Symptoms (Recalled from Triage Doc. by RN): PATIENT C/O MUSCLE STIFFNESS TO RIGHT SIDE OF NECK AND RIGHT SHOULDER X 2 DAYS. NO KNOWN INJURY HEENT Symptoms (Recalled from RN notes): No Resp Symptoms (Recalled from RN notes): No Skin Symptoms (Recalled from RN notes): No MS Symptoms (Recalled from RN notes): Yes Functional Status (Recalled from RN notes): WNL History of Present Illness Provider Complaint: Patient states that for the last couple of days he has been having pain in the right side of his neck into shoulder area States that pain is worse with movement and hurts when he tries to turn or bend his neck States that he hasnt hurt it that he knows of and unsure if he woke up like that or it just started hurting but carries stuff on his shoulder a lot Related Data Home Medications Medication Instructions Recorded Confirmed acetaminophen 500 mg tablet 500 mg PO Q8HP PRN pain 07/22/19 07/23/19 aspirin 81 mg tablet,delayed 81 mg PO DAILY HEART HEALTH 07/22/19 07/22/19 release lcokwqeknm-udqxhtqibiyyk-llvwtrut 1 each PO DAILY Headache 07/22/19 07/22/19 50 mg-300 mg-40 mg capsule clopidogrel 75 mg tablet 75 mg PO DAILY antiplatelet 07/22/19 07/22/19 diazepam 10 mg tablet 10 mg PO BID Anxiety 07/22/19 07/23/19 metoprolol tartrate 25 mg tablet 25 mg PO BID Hypertension 07/22/19 07/22/19 simvastatin 40 mg tablet 40 mg PO HS Cholesterol 07/22/19 07/23/19 tamsulosin 0.4 mg capsule 0.4 mg PO DAILY PROSTATE 07/22/19 07/22/19 Previous Rx's Medication Instructions Recorded methocarbamol 500 mg tablet 500 mg PO TID PRN muscle spasm #12 07/16/22 tabs Allergies Allergy/AdvReac Type Severity Reaction Status Date / Time No Known Allergies Allergy Verified
--- NOTE | 2022-07-16 15:29 | XR_ITS ---
PROCEDURE INFORMATION: Exam: XR Cervical Spine Exam date and time: 07/16/2022 3:30 PM Age: 61 years old Clinical indication: Neck pain TECHNIQUE: Imaging protocol: Radiologic exam of the cervical spine. Views: 2 or 3 views. COMPARISON: CR XR CHEST 2V 07/22/2019 6:25 PM FINDINGS: Bones/joints: Normal. No acute fracture. Normal alignment. Soft tissues: Unremarkable. IMPRESSION: No acute findings.
[2022-07-16 16:50] VITALS: BP 134/84; PULSE 83; RESP 20; TEMP 36.6; O2SAT 100
== END 2022-07-16 16:54 | disposition home or self-care (01) ==
PROVIDERS: Emergency Provider Nurse Practitioner; PCP Nurse Practitioner Family
DX: M62.838 Other muscle spasm (principal)
CPT/HCPCS: 72040; 96372; 99212; G0463

== ENCOUNTER 2023-08-06 20:41 | Outpatient (CLI) | payer MEDICARE, SELFPAY ==
[2023-08-06 20:10] LABS: Barbiturates Screen,Urine Negative ng/ml (<200); Benzodiazepines Screen,Urine Negative ng/ml (<200)
[2023-08-06 20:11] LABS: Cannabinoid Screen,Urine Negative ng/ml (<50)
[2023-08-06 20:12] LABS: Cocaine Screen,Urine Negative ng/ml (<300); Methadone Screen,Urine Negative ng/ml (<300)
[2023-08-06 20:13] LABS: Opiate Screen,Urine Negative ng/ml (<300)
[2023-08-06 20:14] LABS: Phencyclidine Screen,Urine Negative ng/ml (<25)
[2023-08-06 20:31] LABS: Amphetamine/Metha Screen,Urine Negative ng/ml (<1000)
== END 2023-08-06 23:59 ==
LOC: LAB.DROPOF 20:41
PROVIDERS: PCP Nurse Practitioner Family; Visit Provider Nurse Practitioner Family
DX: Z79.899 Other long term (current) drug therapy (principal)
CPT/HCPCS: 80307

== ENCOUNTER 2024-05-21 13:07 | Outpatient (CLI) | payer MEDICARE, SELFPAY ==
--- NOTE | 2024-05-21 13:17 | MR_ITS ---
FINAL REPORT CLINICAL HISTORY: Cephalagia 14 ml prohance headaches and blurred vision COMPARISON: None FINDINGS: Multiplanar MR imaging of the brain was performed without and with contrast. There is no evidence of intracranial hemorrhage or mass. No abnormal extra-axial fluid collection is seen. The ventricular size is within normal limits. There is no evidence of shift of the midline structures. The posterior fossa and brainstem have an unremarkable appearance. No area of abnormal restricted diffusion is identified. No abnormal contrast enhancement is seen. Normal major vessel vascular flow voids are noted. Mild mucosal thickening is noted in multiple paranasal sinuses. IMPRESSION: No acute intracranial abnormality or enhancement identified. Reviewed, Interpreted and Dictated by José Miguel Covarrubias III, MD Transcribed by Beatris Desai Authenticated and [facility]
[2024-05-21 13:44] LABS: Blood Urea Nitrogen 20 mg/dl (9-20); Estimated Glomerular Filt Rate 75 ml/min (>60); GFR (African American) 91 ML/MIN (>60)
[2024-05-21] MEDS: SODIUM CHLORIDE 0.9% 10ML SYR (RAD ONLY) 10 ML IV (14:16)
[2024-05-21] MEDS: GADOTERIDOL INJ 20ML SYRINGE 14 ML IV (14:16)
== END 2024-05-21 23:59 | disposition home or self-care (01) ==
LOC: RAD 13:08
PROVIDERS: PCP Family Medicine; Visit Provider Family Medicine
DX: R51.9 Headache, unspecified (principal)
CPT/HCPCS: 36415; 70553; 82565; 84520; A9576

== ENCOUNTER 2024-08-26 14:14 | Outpatient (CLI) | payer MEDICARE, SELFPAY ==
[2024-08-26 19:53] LABS: Chol/HDL Ratio 4.9 (1-3.5); Cholesterol 180 mg/dl (140-200); HDL Cholesterol 37 mg/dl (40-60); Triglycerides 67 mg/dl (30-150); VLDL Cholesterol 13 mg/dL (0-40)
[2024-08-26 20:05] LABS: Direct LDL Cholesterol 117.42 mg/dL (100-129)
[2024-08-26 20:26] LABS: Prostate Specific Ag Screen 4.7 ng/ml (0.0-4.0)
== END 2024-08-26 23:59 | disposition home or self-care (01) ==
LOC: LAB.DROPOF 08-27 11:25
PROVIDERS: PCP Family Medicine; Visit Provider Family Medicine
DX: Z12.5 Encounter for screening for malignant neoplasm of prostate (principal); E78.5 Hyperlipidemia, unspecified
CPT/HCPCS: 80061; G0103

== ENCOUNTER 2024-09-07 14:46 | Outpatient (CLI) | payer MEDICARE, SELFPAY ==
[2024-09-07 15:09] LABS: Basophils # 0.1 K/mm3 (0-0.2); Basophils % 0.7 % (0.1-2.0); Eosinophils # 0.3 K/mm3 (0.0-0.4); Eosinophils % 4.7 % (0.1-12.0); Hematocrit 38.8 % (42.0-52.0); Hemoglobin 13.2 g/dL (14.1-18.0); Lymphocytes # 2.5 K/mm3 (0.7-4.5); Lymphocytes % 36.2 % (10-50); Mean Corpuscular Hemoglobin 31.1 pg (27.0-31.2); Mean Corpuscular Volume 91.3 fl (80-94); Mean Platelet Volume 9.1 fl (7.4-10.4); Monocytes # 0.5 K/mm3 (0.1-1.0); Monocytes % 6.5 % (1.7-9.3); Neutrophils # 3.6 K/mm3 (1.8-7.8); Neutrophils % 51.8 % (37.0-80.0); Platelet Count 300 K/mm3 (142-424); Red Blood Count 4.25 M/mm3 (4.60-6.20); Red Cell Distribution Width 12.8 % (11.5-17.5)
[2024-09-07 16:07] LABS: Albumin Level 4.2 g/dl (3.5-5.0); Chloride 105 mmol/L (98-107)
[2024-09-07 16:08] LABS: Potassium 4.7 mmoL/L (3.5-5.1); Sodium 139 mmol/L (136-145)
[2024-09-07 16:10] LABS: Alanine Aminotransferase 12 U/L (12-78); Anion Gap 14.7 mEq/L (5-15); Aspartate Amino Transferase 23 U/L (17-59); Bilirubin,Unconjugated 0.3 mg/dL (0.0-1.1); Blood Urea Nitrogen 18 mg/dl (9-20); Carbon Dioxide 24 mmol/L (22.0-30.0); Estimated Glomerular Filt Rate 75 ml/min (>60); GFR (African American) 91 ML/MIN (>60); Total Protein,Serum 6.8 g/dl (6.3-8.2); Triglycerides 73 mg/dl (30-150); VLDL Cholesterol 15 mg/dL (0-40)
[2024-09-07 16:11] LABS: Alkaline Phosphatase 59 U/L (38-126); Bilirubin,Direct 0.1 mg/dl (0.0-0.4); Bilirubin,Indirect 0.3 mg/dL (0.0-0.9); Bilirubin,Total 0.4 mg/dl (0.2-1.3); Calcium 9.3 mg/dl (8.4-10.2); Cholesterol 139 mg/dl (140-200); Glucose 98 mg/dl (74-100); HDL Cholesterol 35 mg/dl (40-60)
[2024-09-07 16:22] LABS: Direct LDL Cholesterol 77.99 mg/dL (100-129)
[2024-09-07 16:50] LABS: Free T4 (Free Thyroxine) 1.06 ng/dl (0.78-2.19)
== END 2024-09-07 23:59 | disposition home or self-care (01) ==
LOC: LAB 14:46
PROVIDERS: PCP Family Medicine; Visit Provider Nurse Practitioner
DX: I25.10 Atherosclerotic heart disease of native coronary artery without angina pectoris (principal); R06.02 Shortness of breath; Z95.5 Presence of coronary angioplasty implant and graft; I10 Essential (primary) hypertension; R07.9 Chest pain, unspecified; F17.210 Nicotine dependence, cigarettes, uncomplicated
CPT/HCPCS: 36415; 80048; 80061; 80076; 84439; 84443; 85025

== ENCOUNTER 2024-09-14 10:15 | Outpatient (CLI) | payer MEDICARE, SELFPAY ==
--- NOTE | 2024-09-14 10:17 | CT_ITS ---
FINAL REPORT TECHNIQUE: After the administration of intravenous contrast, axial images through the chest were performed by computed tomography. Coronal and sagittal reconstructed images were obtained and reviewed. This study was performed with techniques to keep radiation doses as low as reasonably achievable, (ALARA). Individualized dose reduction techniques using automated exposure control or adjustment of mA and/or kV according to the patient's size were employed. CLINICAL HISTORY: Hemoptsis COMPARISON: None FINDINGS: There is no axillary adenopathy. There is no hilar or mediastinal adenopathy. The heart size is normal. There is no pericardial or pleural effusion. There is no evidence of active pneumonia. No lung masses noted. There is a small oval nodule in the periphery of the right upper lobe on image 29 of series 2 measuring 6 x 3 mm. Granuloma is favored given the evidence of old calcified granulomatous disease. Limited images of the upper abdomen are unremarkable. No suspicious infiltrate or nodule identified. IMPRESSION: No evidence of active pneumonia or lung mass. Small peripheral nodule right upper lobe, favor benign. Recommend 6-month follow-up. Reviewed, Interpreted and Dictated by Jerilyn Thorne MD Transcribed by Balbina Perez Authenticated and [facility]
[2024-09-14] MEDS: IOPAMIDOL-370 (76%);100ML BOTTLE 75 ML IV (10:32)
[2024-09-14] MEDS: SODIUM CHLORIDE 0.9% 10ML SYR (RAD ONLY) 10 ML IV (10:32)
== END 2024-09-14 23:59 | disposition home or self-care (01) ==
LOC: RAD 10:17
PROVIDERS: PCP Family Medicine; Visit Provider Family Medicine
DX: R04.2 Hemoptysis (principal)
CPT/HCPCS: 71260; Q9967

== ENCOUNTER 2024-09-29 07:59 | Outpatient (CLI) | payer MEDICARE, SELFPAY ==
--- NOTE | 2024-09-29 | CA_ITS ---
APPROVED REPORT Exam: Pharmacologic Technologist: Christine Lobo Ht: 5 ft 8 in Wt: 147 lbs BSA: 1.79 m2 Stress Test Details Test: Lexiscan Reason for pharmacologic stress test: physical limitation. HR Resting HR: 62 bpm Max Heart Rate (APMHR): 156.117890 bpm Max HR Achieved: 115 bpm Target HR (85% APMHR): 132.212117 bpm % of APMHR: 73.72 Recovery HR: 70 bpm BP Resting BP: 138.0/78.0 mmHg Max BP: 148.0/90.0 mmHg Recovery BP: 131.0/78.0 mmHg ECG Resting ECG: Sinus Stress ECG Conclusion Symptoms: Dyspnes, chest pressure. Arrhythmias/Ectopy: PAC. ST-T Changes: Less than 1mm ST depression. Conclusion: EKG unremarkable due to Lexiscan infusion. Electronically signed by : Khadijah Siegel MD 10/01/2024 12:26:56
--- NOTE | 2024-09-29 08:07 | NM_ITS ---
APPROVED REPORT Exam: Nuclear Stress Test Indication: Chest pain, SOB, High cholesterol, Tobacco use, CAD Patient Location: Outpatient Stress Tech: Christine Ny DC Tech:Leatha Osorio, ARRT, RT (R)(N) Ht: 5 ft 8 in Wt: 145 lbs HR: 62 bpm BP: 138/78 mmHg BSA: 1.78 m2 TID: 1.16 BMI: 22.0 History: Chest pain, SOB, High cholesterol, Tobacco use, CAD Procedure: Patient received 0.4 mg of intravenous Lexiscan, resting heart rate 62 bpm, resting blood pressure 138/78 mmHg, with Lexiscan maximum heart rate achieved was 71 bpm which is % of the maximum predicted heart rate and blood pressure was 138/76 mmHg. With Lexiscan, patient denied any complaint of chest pain. Cardiac Stress and Resting SPECT Images: Cardiac Stress and Resting SPECT images were obtained using technetium 99m Myoview 32.4 mCi stress and 10.04 mCi at rest. Resting and stress imaging in supine positions demonstrate a mild, medium sized, tapered fixed perfusion defect in the basal to mid inferior LV loredo. This is no longer visualized with prone stress imaging. Findings are suggestive of diaphragmatic attenuation. Gated imaging demonstrates normal global and regional LV systolic function. LVEF is calculated at 52%. Conclusion: Diaphragmatic attenuation is present. No evidence of fixed or reversible perfusion defects. Gated imaging demonstrates normal global and regional LV systolic function. LVEF is calculated at 52%. Electronically signed by : Khadijah Siegel MD 09/29/2024 12:09:22
[2024-09-29] MEDS: ISOTOPE MYOVIEW (PER STUDY) 1 DOSE IV (09:36)
[2024-09-29] MEDS: SODIUM CHLORIDE 0.9% 10ML SYR (RAD ONLY) 10 ML IV ×2 (09:36)
[2024-09-29] MEDS: REGADENOSON 0.4MG/5ML SYRINGE 0.4 MG IV (09:36)
== END 2024-09-29 23:59 | disposition home or self-care (01) ==
LOC: RAD 08:00
PROVIDERS: PCP Family Medicine; Visit Provider Nurse Practitioner
DX: R07.9 Chest pain, unspecified (principal); R06.02 Shortness of breath
CPT/HCPCS: 78452; 93017; 93018; 93306; A9502; J2785